=== PATIENT | male | born 1950 | race Caucasian/White ===

== ENCOUNTER 2019-06-04 19:52 | Emergency (ER) | payer SELFPAY ==
[~2019-06-04] VITALS: Ht 180.3 cm; Wt 61.0 kg
[2019-06-04 19:54] VITALS: BP 121/72
== END 2019-06-04 21:17 | disposition home or self-care (01) ==
LOC: ED 21:11
DX: B86 Scabies (principal); R05 Cough; I10 Essential (primary) hypertension
CPT/HCPCS: 71046; 99283

== ENCOUNTER 2019-06-12 00:42 | Emergency (ER) | payer SELFPAY ==
[~2019-06-12] VITALS: Ht 180.3 cm; Wt 63.2 kg
[2019-06-12 00:43] VITALS: BP 139/80
--- NOTE | 2019-06-12 01:57 | NUR ---
PT. TO ROOM FROM LOBBY AT THIS TIME.
--- NOTE | 2019-06-12 02:35 | NUR ---
Pt sitting up on gurney, aox4, talking on phone, respirations even and unlabored, vitals stable, no apparent distress noted. Pt states "I think I have pneumonia", reports "dripping nose". Afebrile. Waiting for orders.
--- NOTE | 2019-06-12 03:05 | NUR ---
Pt stable for discharge to home, exitcare reviewed w/pt, verbalizes understanding, ambulates w/ steady gait to front lobby w/ personal belongings.
== END 2019-06-12 03:17 | disposition home or self-care (01) ==
LOC: ED 03:11
DX: J20.9 Acute bronchitis, unspecified (principal); I10 Essential (primary) hypertension; F17.200 Nicotine dependence, unspecified, uncomplicated
CPT/HCPCS: 99283